=== PATIENT | female | born 1935 | race Asian ===

== ENCOUNTER 2018-07-02 08:55 | Outpatient (CLI) | payer OTHER, SELFPAY ==
[2018-07-02] VITALS (14 sets, daily range): BP systolic 96–152; BP diastolic 61–78; PULSE 60–91; RESP 14–19; TEMP 36.2; O2SAT 96–100
--- NOTE | 2018-07-02 08:57 | DI.RAD.S_ITS ---
PROCEDURE: PAIN C/T INTERLAMINAR INJECT INDICATIONS: Spinal stenosis, cervical region FINDINGS: Fluoroscopic spot filming was performed to verify placement of spinal needles at the C6-C7 level(s), as labeled on the films. Appropriate location(s) of the needle tip(s) was confirmed by injection of iodinated contrast. IMPRESSION: Successful dorsal midline C6-C7 needle tip localization for translaminar epidural steroid injection. Dictated by: Dakota Valladares M.D. on 07/02/2018 at 13:30 Approved by: Dakota Valladares M.D. on 07/02/2018 at 13:30
--- NOTE | 2018-07-02 09:36 | PM.PROC.1 ---
Procedures Date/Time Date of procedure: 07/02/18 Time of procedure: 09:37 General Procedure description: PREOP DIAGNOSIS 1. CERVICAL STENOSIS, 2. CERVICAL HNP WITH UPPER EXTREMITY RADICULAR FEATURES, POST OP DIAGNOSIS 1. CERVICAL STENOSIS, 2. CERVICAL HNP WITH UPPER EXTREMITY RADICULAR FEATURES, PROCEDURES 1. FLUORSCOPICALLY GUIDED CONTRAST CONTROLLED INTERLAMINAR EPIDURAL STEROID INJECTION - C6/7 TL BESS PHYSICIAN: DO CELESTINO Perez Theresa is referred by Dr. Sosa for treatment of Cervical HNP with Upper Extremity Paresthesias. FINDINGS Cervical Stenosis due to disc deterioration and nerve root irritation and nerve root irritation DESCRIPTION OF PROCEDURE Fluoroscopically guided, contrast-controlled C6/7 translaminar epidural steroid injection with conscious sedation. Following denial of allergy and review of potential side effects and complications, including, but not necessarily limited to, infection, allergic reaction, local tissue breakdown, temporary as well as permanent nerve injury, stroke, paralysis, and possible , the patient indicated that patient understood and agreed to proceed. An informed consent document was signed by the patient, witnessed by a nurse, and placed in the patient's chart. Additionally, other treatment options including modalities, medications, and physical therapy were reviewed with the patient. After review of previous anaesthesic history and IV conscious sedation the patient was deemed safe to proceed with todays procedure with IV conscious sedation as ASA class II designation. Safety time-out was performed to confirm patient ID, procedure to be performed and site of procedure. IV sedation was accomplished with a combination of 3mg of Versed administered by the RN after DO order, titrated to patient comfort during the course of the procedure while the patient remained responsive to all verbal commands. In the prone position, following sterile prep and drape of the cervical region, the C6/7 translaminar space was identified fluoroscopically. The skin was anesthetized via a 25-gauge 1.5-inch needle with 1% lidocaine solution. At this point, a 25-gauge, 2.5-inch short bevel spinal needle was atraumatically introduced and advanced under fluoroscopic guidance into epidural space at the C6/7 translaminar space. Depth was confirmed on lateral view. Radiological data, including multiple fluoroscopic views of the cervical spine, reveal a spinal needle at the C6/7 translaminar space. Lateral views then show placement of the needle in the epidural space. Subsequent views show contrast material flowing superiorly and inferiorly in the epidural space. DSA fluoroscopy with live contrast injection, once again, confirmed no vascular or intrathecal uptake. At this point, using loss of resistance technique with saline and air, the epidural space was entered. Following negative aspiration, injection of approximately 1.5 cc of Isovue-200 with live fluoroscopy in the AP view confirmed epidural flow in the epidural space without vascular or intrathecal uptake observed. Subsequently, a test dose of 1 cc of 1% lidocaine solution was injected and patient was observed for two minutes without signs or symptoms of complications, including abdominal pain, shortness of breath, bilateral upper or lower extremity weakness, nausea and vomiting, prior to steroid injection. At this point, 3 cc or 30 mg of dexamethasone was then injected without incident. The patient tolerated the procedure well without signs or symptoms of complications prior to being transferred to the recovery area for further monitoring, The patient was then transferred to the recovery area where they were observed for an appropriate period of time after the injection. The patient reported a VAS score of 6 prior to the procedure and a post-procedure VAS of 0. Total Fluoroscopy Time: 37.0 seconds Total Conscious Time: 24min POST OP INSTRUCTIONS The patient was provided a Pain Log to continue to record their response to the target-specific procedure prior to follow-up visit with the referring provider. Additionally, specific post-injection care instructions and a contact number to our office were provided if concerns arise regarding possible complications associated with the procedure are suspected. Hugo Gracia DO Complications: none
[2018-07-02] MEDS: MIDAZOLAM 5 MG/5 ML VIAL IV (09:54)
[2018-07-02] MEDS: IOPAMIDOL 15 ML VIAL 3 ML INJ (10:08)
[2018-07-02] MEDS: LIDOCAINE 1% 20 ML INJ 5 ML INJ (10:08)
[2018-07-02] MEDS: DEXAMETHASONE 10 MG/ML VIAL 30 MG INJ (10:08)
--- NOTE | 2018-07-02 10:31 | PC.NURSE ---
IMMEDIATELY AFTER PROCEDURE, PT UNABLE TO HOLD SELF IN A SITTING POSITION OR FOLLOW EASY COMMANDS RT OVERSEDATION. VSS. 0.2MG FLUMAZENIL GIVEN PER VERBAL ORDER OF DR. ALONSO FELIPE. PT AWAKE AND ABLE TO SAFELY GET OFF PROCEDURAL TABLE WITHIN 2 MINUTES OF MEDICATION GIVEN. PT SAFELY TRANSFERED TO WHEELCHAIR.
[2018-07-02] MEDS: FLUMAZENIL 0.5 MG/5 ML MDV 0.2 MG IV (10:34)
--- NOTE | 2018-07-02 16:24 | PC.NURSE ---
ATTEMPTED TO MAKE FOLLOW UP CALL AFTER PROCEDURE TODAY, NO ANSWER, LEFT MESSAGE WITH CURRENT PHONE NUMBER FOR IMMEDIATE CALL BACK AND OFFICE NUMBER IF SHE WOULD LIKE TO CALL LATER IN THE WEEK.
--- NOTE | 2018-07-04 10:33 | PC.NURSE ---
Spoke to Patient for Follow up pain procedure. She reports the pain in her right arm is 95%gone but now her left hand hurts. She didn't give me a number but said it hurts only when she touches it. I F/U with son, Arden and he reports she did fine after her procedure but he hadn't seen her yet the day after. Today would be two days post procedure. Dr. Gracia notified of progress.
== END 2018-07-02 11:37 ==
PROVIDERS: Family Provider Family Medicine; PCP Family Medicine; Visit Provider Physical Medicine & Rehabilitation
DX: M48.02 Spinal stenosis, cervical region (principal); M50.123 Cervical disc disorder at C6-C7 level with radiculopathy; Z98.1 Arthrodesis status
CPT/HCPCS: 62321; 99152; 99153; J1100; J2250

== ENCOUNTER → 2019-01-08 09:39 | Outpatient (CLI) | payer OTHER, SELFPAY ==
--- NOTE | 2019-01-08 09:41 | DI.RAD.S_ITS ---
PROCEDURE: FL BARIUM SWALLOW INDICATIONS: food getting stuck COMPARISON: None. FINDINGS: Function: There is normal swallowing motion. Small amount of contrast is seen aspirated into trachea which elicited a cough response. There is normal esophageal peristalsis. No elicited gastroesophageal reflux. Morphology: Air-contrast images demonstrate normal mucosal morphology. Single contrast views show no esophageal strictures, extrinsic mass effects, or diverticula. Limited images of the stomach demonstrate normal appearance. IMPRESSION: 1. Aspiration was noted during the test, suggest consultation from speech pathology for further evaluation. 2. No gross intraluminal filling defect or external mass compression is seen in the esophagus. No significant gastroesophageal reflux. Findings were called to referring clinician's office at 10:50 AM on 01/08/19. Dictated by: Gage Doherty M.D. on 01/08/2019 at 10:50 Approved by: Gage Doherty M.D. on 01/08/2019 at 10:54
== END ==
PROVIDERS: PCP Physician Assistant; Visit Provider Physician Assistant
DX: R13.10 Dysphagia, unspecified (principal)
CPT/HCPCS: 74220

== ENCOUNTER 2019-01-26 13:09 | Outpatient (RCR) | payer OTHER, SELFPAY ==
--- NOTE | 2019-07-15 13:47 | ST.OPDS ---
Care Team Visit Care Team Role Provider Type Mihaela Iraheta PA-C Primary Care Provider Advanced Shingle Grader Address: [address] [place] [address], [id number] Bhaskar Chilel PA-C Attending Provider [employer]ader Address: [address] [place] [address], [id number] ENGINEERING RESEARCH MANAGER Treatment Note ENGINEERING RESEARCH MANAGER Treatment Note Start: 07/15/19 13:44 Freq: Status: Active Protocol: Document 07/15/19 13:44 SIMRAN (Rec: 07/15/19 13:46 SIMRAN [email or web address]) Speech Pathology Treatment Note Visit Information Plan of Care Dates 01/26/19 - 04/20/19 Insurance Information [employer] Setting Treatment Setting Outpatient Care Visit Type Note Type Discharge Summary General Information General Information 83-yr-old female was seen on 01/08/19 for esophageal barium swallow study d/t foods getting stuck. Radiologist report notes aspiration with cough response during test and requested consultation form speech pathology for further evaluation. On 01/20/15, the pt underwent C4-5 anterior cervical diskectomy and fusion with cage plate and iliac crest bone graft; left-sided C5-6 and left-sided C6-7 foraminotomies at [facility]. Per medical records, during hospital stay, chest x-ray showed multilobular infiltrates, and it was felt that she had probable aspiration pneumonia due to nausea and vomiting from her pain medications. She was treated with medication and discharged to SNF on post-op day 5. Per pt report, she has experienced swallow difficulties since this surgery, most prominently difficulty clearing solids and needing liquid wash to assist . She denied coughing or choking episodes. Subjective Observations/Patient Presentation This patient was seen for clinical swallow evaluation on 01/26/19, at which time MBSS was recommended with dysphagia therapy to follow pending results. The pt was in agreement with these recommendations; however, she has not participated in MBSS at this facility and has not pursued further evaluation and treatment with us. She is discharged from skilled intervention at this time.
== END 2019-07-16 09:24 | disposition home or self-care (01) ==
LOC: SP 13:09
PROVIDERS: PCP Physician Assistant; Visit Provider Physician Assistant
DX: R13.10 Dysphagia, unspecified (principal)
CPT/HCPCS: 92610

== ENCOUNTER → 2019-02-03 08:15 | Outpatient (CLI) | payer OTHER, SELFPAY ==
[2019-02-03 08:32] LABS: WBC Urine None Seen (0-5/HPF)
[2019-02-03 09:35] LABS: Appearance Urine UA CLEAR; Bilirubin Urine UA NEGATIVE (NEGATIVE); Color Urine UA YELLOW; Glucose Urine UA NEGATIVE (Negative); Ketones Urine UA NEGATIVE (NEGATIVE); Leukocyte Esterase Urine UA NEGATIVE (NEGATIVE); Nitrite Urine UA NEGATIVE (Negative); Occult Blood Urine UA TRACE-INTACT (Negative); Protein Urine UA NEGATIVE (Negative); Urobilinogen Urine UA 0.2 E.U./dL (0.2)
[2019-02-03 09:46] LABS: Hematocrit 39.3 % (36-46); Mean Corpuscular Hemoglobin 31.4 PG (26-34); Mean Corpuscular Volume 95.1 fL (80-100); Platelet Count 190 X10^3/uL (150-400); Red Blood Cell Count 4.13 X10^6/uL (4.0-5.2); Red Cell Distribution Width 12.5 % (11.6-14.8); White Blood Cell Count 4.3 X10^3/uL (4.5-11.0)
[2019-02-03 09:53] LABS: BUN Creatinine Ratio 26.7 (6-22); Blood Urea Nitrogen 16 mg/dL (7-17); Calcium 9.2 mg/dL (8.4-10.2); Carbon Dioxide 26 mmol/L (22-32); Chloride 104 mmol/L (98-107); Estimated Glomerular Filt Rate > 60.0 mL/min (>60); Glucose 80 mg/dL (80-110); HEMOLYSIS < 15 (0-50); Potassium 4.1 mmol/L (3.4-5.1); Sodium 139 mmol/L (137-145)
[2019-02-03 10:03] LABS: Bacteria Urine Few (2-10); RBC Urine 0-1/HPF (0-5/HPF)
[2019-02-03 10:13] LABS: Vitamin D 25 Hydroxy (D3) 64.1 ng/mL (30.0-100.0)
[2019-02-03 10:23] LABS: TSH w/ Reflex to FT4 2.24 uIU/mL (0.47-4.68)
== END ==
PROVIDERS: PCP Student in an Organized Health Care Education/Training Program; Visit Provider Student in an Organized Health Care Education/Training Program
DX: G47.19 Other hypersomnia (principal); K22.70 Barrett's esophagus without dysplasia; M54.2 Cervicalgia; R30.0 Dysuria; E55.9 Vitamin D deficiency, unspecified
CPT/HCPCS: 36415; 80048; 81001; 82306; 84443; 85027